=== PATIENT | male | born 1995 | race Caucasian/White ===

== ENCOUNTER 2019-12-29 14:16 | Emergency (ER) | payer OTHER ==
[~2019-12-29] VITALS: Ht 198.1 cm; Wt 181.4 kg
[2019-12-29] MEDS ORDERED: LISINOPRIL-HCT1 EAC1 PO (14:36)
[2019-12-29] MEDS ORDERED: CRUTCH1 EACH MISC (15:07)
== END 2019-12-29 15:23 | disposition home or self-care (01) ==
LOC: ED 14:16
DX: S93.401A Sprain of unspecified ligament of right ankle, initial encounter (principal); I10 Essential (primary) hypertension; Z79.899 Other long term (current) drug therapy; X58.XXXA Exposure to other specified factors, initial encounter
CPT/HCPCS: 73610; 99283-25